=== PATIENT | male | born 1995 | race American Indian/Alaskan Native ===

== ENCOUNTER → 2017-02-10 | Outpatient (CLI) | payer OTHER ==
[~2017-02-10] MED LIST: BUPR-124 PO; BUPR-474 PO; CHOL500016 PO; CYAN500T38 PO; DIME240C2 PO; ERGO500037 PO; FLU45SYR17 IM; FLU45SYR25 IM ONLY; FLU60SYR30 IM ONLY; METH36 PO
[2017-02-10 10:13] LABS: PLATELET COUNT, AUTOMATED 289 K/uL (150-450)
== END ==
LOC: LAB 09:36
PROVIDERS: ATTEND Emergency Medicine
DX: G35 Multiple sclerosis (principal); R79.89 Other specified abnormal findings of blood chemistry
CPT/HCPCS: 36415; 82040; 82247; 82306; 82310; 82374; 82435; 82565; 82570; 82607; 82610; 82947; 83036; 84075; 84132; 84155; 84295; 84450; 84460; 84520; 85025

== ENCOUNTER → 2017-09-08 | Outpatient (CLI) | payer OTHER ==
[~2017-09-08] MED LIST changes: +CLIN30GE15 TP; +TRET20CR33 TP
[2017-09-08 08:50] LABS: PLATELET COUNT, AUTOMATED 264 K/uL (150-450)
[2017-09-08 08:59] LABS: LDL CHOLESTEROL 119 mg/dl
== END ==
LOC: LAB 08:26
PROVIDERS: ATTEND Nurse Practitioner Family
DX: R74.8 Abnormal levels of other serum enzymes (principal); E78.5 Hyperlipidemia, unspecified; E53.8 Deficiency of other specified B group vitamins; E55.9 Vitamin D deficiency, unspecified; G35 Multiple sclerosis
CPT/HCPCS: 36415; 82040; 82247; 82306; 82310; 82374; 82435; 82465; 82565; 82607; 82746; 82947; 83718; 84075; 84132; 84155; 84295; 84443; 84450; 84460; 84478; 84520; 85025

== ENCOUNTER 2017-12-25 16:37 | Emergency (ER) | payer OTHER ==
[2017-12-25] MEDS ORDERED: ENT KIT ONE (17:03)
[2017-12-25 17:30] VITALS: BP 131/92
--- NOTE | 2017-12-25 17:39 | ER Report ---
History and Physical Time Seen By MD: 16:45 Hx. of Stated Complaint: Pt. has nosebleed that has been going on since 1630 (15 minutes). No trauma to nose reported; spontaneous bleed. 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 It is somewhat controlled with direct pressure. Pt is not swallowing blood. Has had mild prior epistaxis. Denies bleeding problems, recent trauma, recent uri, prior related surgeries. No allison, cp, sob, fevers REVIEW OF SYSTEMS: Respiratory: No cough, no dyspnea. Cardiovascular: No chest pain, no palpitations. Gastrointestinal: No vomiting, no abdominal pain. Musculoskeletal: No back pain. Remainder of the 14 system rev: Yes Allergies: Coded Allergies: No Known Drug Allergies (Unverified , 12/25/17) Home Meds Active Scripts Methylphenidate Hcl (CONCERTA) 36 Mg Tab.er.24, 1 TAB PO DAILY, #30 TAB 0 Refills may fill on or after 10/24/17 Prov:CHARLES HANDY APRN CLIENT TECHNICAL PROFESSIONAL-C 08/25/17 Tretinoin 0.025% Top Cream (RETIN-A 0.025% TOP CREAM) 20 Gm Cream..g., 1 KATTY TP QHS for 30 Days, #1 TUBE 2 Refills Prov:LESLYE PETIT NPC 04/13/17 Bupropion Hcl (WELLBUTRIN XL) 300 Mg Tab.er.24h, 1 TAB PO QDAY, #90 TAB 3 Refills Prov:CHARLES HANDY APRN CLIENT TECHNICAL PROFESSIONAL-C 04/10/17 Cholecalciferol (Vitamin D3) (VITAMIN D3) 5,000 Unit Capsule, 2 CAP PO DAILY, #60 CAPSULE 2 Refills Prov:CHARLES HANDY APRN CLIENT TECHNICAL PROFESSIONAL-C 07/26/16 Dimethyl Fumarate (TECFIDERA) 240 Mg Capsule.dr, 1 TAB PO BID, #180 CAP 3 Refills Prov:ORLIN VALDEZ MD 03/02/15 Reported Medications Cyanocobalamin (Vitamin B-12) (VITAMIN B-12) 500 Mcg Tablet, 1 TAB PO DAILY, TAB 11/14/16 Discontinued Scripts Clindamycin Phosphate (CLINDAMYCIN PHOSPHATE) 30 Gm Gel..gram., 1 KATTY TP QAM for 30 Days, #1 TUBE 2 Refills Prov:LESLYE PETIT NPC 04/13/17 Smoking Status: Never Smoker Constitutional Vital Sign - Last 24 Hours 12/25/17 12/25/17 12/25/17 12/25/17 16:37 16:42 16:43 17:00 Temp 97.8 Pulse ??? 86 Resp 16 B/P (MAP) 155/100 (118) 155/100 133/93 (106) Pulse Ox 95 O2 Delivery Room Air 12/25/17 12/25/17 17:07 17:30 Pulse 88 B/P (MAP) 131/92 (105) Pulse Ox 96 Physical Exam General Appearance: The patient is alert, has no immediate need for airway protection and no current signs of toxicity. Eyes: Pupils equal and round no injection. Respiratory: no respiratory distress Cardiac: regular rate and rhythm Musculoskeletal: extremities have full range of motion Skin: no rashes or lesions Nares - Left nare nl; r nare; multiple excoriations on mucosal and septal surface without clear source of epistaxis. This is controlled after administration of afrin with epi. DIFFERENTIAL DIAGNOSIS: After history and physical exam differential diagnosis w as considered for polyp, post bleed, arterial bleed, infection, bleeding diathesis or other emergent etiology. Medical Decision Making ED Course/Re-evaluation ED Course Pt presents with mild epistaxis, readily controlled. No epistaxis on d/c. D/c [facility] SRP's. Procedure Procedure: Epistaxis control. The patient was anesthetized with epinephrine/afrin. The anterior epistaxis was identified. The patient was treated with vasoconstriction. Following the procedure the patient was re-examined and the bleeding was well controlled. The patient tolerated the procedure well. The procedure was performed by myself. Decision to Disposition Date: Dec 25, 2017 Decision to Disposition Time: 17:30 Depart Departure Latest Vital Signs Vital Signs Date Time Temp Pulse Resp B/P (MAP) Pulse Ox O2 Delivery O2 Flow Rate FiO2 12/25/17 17:30 131/92 (105) 12/25/17 17:07 88 96 12/25/17 16:43 97.8 16 Room Air Impression: Primary Impression: Epistaxis Condition: Improved Disposition: HOME OR SELF-CARE Referrals: CHARLES HANDY APRN CLIENT TECHNICAL PROFESSIONAL-C (PCP) Patient Instructions: Nosebleed (ED) Additional Instructions: As we discussed, use afrin 2 sprays, 2 times daily for 3 days. If you have a rebleed, use direct pressure for 30 minutes. Please return if you continue bleeding despite this. Follow up with your [facility] doctor for referral to ENT if needed and for further evaluation. MARYANNE DIAZ MD Dec 25, 2017 17:38
[2017-12-25] MEDS ORDERED: PHENYLEPHRINE 0.5% 15 ML BTL ONE (17:50)
== END 2017-12-25 17:49 | disposition home or self-care (01) ==
LOC: ER 16:53
DX: R04.0 Epistaxis (principal)
CPT/HCPCS: 99282

== ENCOUNTER → 2018-03-09 | Outpatient (CLI) | payer OTHER ==
[2018-03-09 10:46] LABS: PLATELET COUNT, AUTOMATED 251 K/uL (150-450)
[2018-03-09 11:13] LABS: LDL CHOLESTEROL 125 mg/dl
== END ==
LOC: LAB 10:16
PROVIDERS: ATTEND Internal Medicine
DX: E78.5 Hyperlipidemia, unspecified (principal); R94.5 Abnormal results of liver function studies; G35 Multiple sclerosis; E55.9 Vitamin D deficiency, unspecified; E53.8 Deficiency of other specified B group vitamins
CPT/HCPCS: 36415; 82040; 82247; 82306; 82310; 82374; 82435; 82465; 82565; 82607; 82728; 82746; 82947; 83036; 83540; 83550; 83718; 84075; 84132; 84155; 84295; 84443; 84450; 84460; 84478; 84520; 85025

== ENCOUNTER → 2018-05-21 | Outpatient (CLI) | payer OTHER | LOC: LAB 16:43 | PROVIDERS: ATTEND Internal Medicine | DX: R74.8 Abnormal levels of other serum enzymes (principal); E53.8 Deficiency of other specified B group vitamins; E55.9 Vitamin D deficiency, unspecified; G35 Multiple sclerosis | CPT/HCPCS: 36415; 82040; 82247; 82306; 82310; 82374; 82435; 82565; 82607; 82746; 82947; 83921; 84075; 84132; 84155; 84295; 84450; 84460; 84520; 86340 ==